=== PATIENT | male | born 1985 | race African-American/Black ===

== ENCOUNTER 2022-10-28 20:02 | Observation (INO) | payer MEDICAID ==
[~2022-10-28] VITALS: Ht 188 cm; Wt 127.0 kg
[2022-10-28 20:07] VITALS: BP 158/90
--- NOTE | 2022-10-28 23:32 | NUR ---
Patient taken to bed 11.
--- NOTE | 2022-10-28 23:37 | NUR ---
Dr. Castro examining patient.
[2022-10-28] MEDS ORDERED: DEXAMETHASONE 10 MG/ML VIAL IVP ONE (23:45)
[2022-10-28] MEDS ORDERED: NACL 0.9% 1,000 ML IV ONE (23:45)
[2022-10-28] MEDS ORDERED: KETOROLAC 30 MG/ML VIAL IVP ONE (23:45)
--- NOTE | 2022-10-28 23:46 | NUR ---
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
[2022-10-28] MEDS ORDERED: FAMOTIDINE 20 MG/2 ML VIAL IVP ONE (23:50)
--- NOTE | 2022-10-28 23:56 | NUR ---
PT TAKEN TO CT
--- NOTE | 2022-10-29 00:12 | NUR ---
PT RETURN FROM CT
[2022-10-29 00:43] LABS: BASOPHILS % (AUTO) 0.4 % (0.0-2.0); EOSINOPHILS % (AUTO) 0.1 % (0.0-4.0); HEMATOCRIT 39.2 % (36-52); HEMOGLOBIN 12.9 g/dL (12.0-18.0); LYMPHOCYTES # (AUTO) 1.8 K/uL (2.0-11.5); LYMPHOCYTES % (AUTO) 16.4 % (20.5-51.1); MEAN CORPUSCULAR HEMOGLOBIN 30 pg (27-31); MEAN CORPUSCULAR HGB CONC 33 g/dL (33-37); MEAN CORPUSCULAR VOLUME 90.9 fL (80-94); MONOCYTES # (AUTO) 1.1 K/uL (0.8-1.0); MONOCYTES % (AUTO) 9.8 % (1.7-9.3); NEUTROPHILS # (AUTO) 8.1 K/uL (1.8-7.7); NEUTROPHILS % (AUTO) 73.3 % (42.2-75.2); PLATELET COUNT (AUTO) 269 K/uL (140-450); RED BLOOD CELL COUNT(AUTO) 4.31 MIL/uL (4.20-6.10); RED CELL DISTRIBUTION WIDTH 15.5 % (11.6-13.7); WHITE BLOOD COUNT (AUTO) 11.1 K/uL (4.8-10.8)
--- NOTE | 2022-10-29 01:01 | NUR ---
STREP SWABS COLLECTED AND WALKED TO LAB.
[2022-10-29 01:16] LABS: ANION GAP 11.8 (8-16); CARBON DIOXIDE 28.5 mmol/L (21-32); CREATININE 1.2 mg/dL (0.6-1.3); POTASSIUM 4.3 mmol/L (3.5-5.1)
[2022-10-29] MEDS ORDERED: metroNIDAZOLE 500 MG/NS PREMIX 100 ML IV ONE ×2 (01:45→01:49)
[2022-10-29] MEDS ORDERED: LEVOFLOXACIN 750 MG/D5W PREMIX 150 ML IV ONE (01:45)
--- NOTE | 2022-10-29 01:45 | NUR ---
PATIENT RESTING IN BED WITH EYES CLOSED. DOESNT APPEAR TO BE IN DISTRESS. PATIENT STATED HE IS FEELING ALOT BETTER AFTER THE MEDICATION. BED LOW AND LOCKED. CALL LIGHT IN REACH. ALL NEEDS MET.
--- NOTE | 2022-10-29 02:02 | NUR ---
CHARANJIT COLLECTED AND WALKED TO LAB
--- NOTE | 2022-10-29 02:55 | NUR ---
skin check done. skin intact.
--- NOTE | 2022-10-29 02:56 | NUR ---
medication reconciliation complete
--- NOTE | 2022-10-29 03:43 | NUR ---
PATIENT RESTING IN BED WITH EYES CLOSED. DOESNT APPEAR TO BE IN DISTRESS. BED LOW AND LOCKED. RADHA SIDE RAILS FOR SAFETY. ALL NEEDS MET. CALL LIGHT IN REACH.
[2022-10-29] MEDS ORDERED: MAG SULF 2000 MG/WATER PREMIX 50 ML IV PRN (06:35)
[2022-10-29] MEDS ORDERED: DOCUSATE SODIUM 100 MG GELCAP PO PRN (06:35)
[2022-10-29] MEDS ORDERED: POTASSIUM CHLORIDE 10 MEQ TABER PO PRN (06:35)
[2022-10-29] MEDS ORDERED: ZOLPIDEM 10 MG TAB PO PRN (06:35)
[2022-10-29] MEDS ORDERED: ACETAMINOPHEN 325 MG TAB PO PRN (06:35)
[2022-10-29] MEDS ORDERED: MORPHINE SULFATE 2 MG/ML SYR IVP PRN (06:35)
[2022-10-29] MEDS ORDERED: LORazepam 2 MG/ML VIAL IVP PRN (06:35)
[2022-10-29] MEDS ORDERED: ONDANSETRON 4 MG/2 ML VIAL IVP PRN (06:35)
--- NOTE | 2022-10-29 07:20 | NUR ---
REPORT GIVEN TO YUAN SHAIKH. TRANSFER OF CARE.
--- NOTE | 2022-10-29 08:00 | NUR ---
RECEIVED PT IN [facility] AOX4. DENIES PAIN OR DISCOMFORT. NSR ON MONITOR. BREATHING UNLAORED. NAD. SAFETY MAINTAINED.
[2022-10-29 10:00] VITALS: BP 117/65
--- NOTE | 2022-10-29 10:53 | NUR ---
Patient does not wish to proceed with medical care recommended by DR NGUYEN. Patient given information related to possible complications, up to and including , which could occur as a result of leaving hospital at this time. Patient verbalizes understanding of risks involved leaving against medical advice. Patient has signed AMA form.
[2022-10-29] MEDS ORDERED: methylPREDNISolone SS 40 MG in WATER STERILE 1 ML IV SCH (13:00)
[2022-10-29] MEDS ORDERED: metroNIDAZOLE 500 MG/NS PREMIX 100 ML IV SCH (13:00)
[2022-10-29] MEDS ORDERED: methylPREDNISolone SS 40 MG/ML VIAL IVP SCH (13:00)
[2022-10-30] MEDS ORDERED: LEVOFLOXACIN 500 MG/D5W PREMIX 100 ML IV SCH (02:30)
== END 2022-10-29 10:49 | disposition left against medical advice (07) ==
LOC: MED 20:02 → MTU 10-29 06:34
PROVIDERS: ADMIT Family Medicine; ATTEND Family Medicine
DX: J02.9 Acute pharyngitis, unspecified (principal); Z20.822 Contact with and (suspected) exposure to COVID-19; T78.3XXA Angioneurotic edema, initial encounter; F32.A Depression, unspecified; F17.210 Nicotine dependence, cigarettes, uncomplicated; Z88.0 Allergy status to penicillin; Z53.29 Procedure and treatment not carried out because of patient's decision for other reasons; Z79.899 Other long term (current) drug therapy
CPT/HCPCS: 36415; 70491; 80048; 83605; 85025; 87040; 87081; 87426; 96361; 96365; 96367; 96375; 99291; G0378; J1100; J1885; J1956; J3490; Q9967

== ENCOUNTER 2024-08-01 21:45 | Emergency (ER) | payer MEDICAID ==
[~2024-08-01] VITALS: Ht 188 cm; Wt 140.6 kg
[2024-08-01 21:52] VITALS: BP 119/80; PULSE 95; RESP 18; TEMP 97.1; O2SAT 95
[2024-08-01 21:55] VITALS: O2SAT 95
[2024-08-01 23:41] LABS: BASOPHILS % (AUTO) 0.3 % (0.0-2.0); EOSINOPHILS % (AUTO) 0.3 % (0.0-4.0); HEMATOCRIT 39.3 % (36-52); HEMOGLOBIN 13.2 g/dL (12.0-18.0); LYMPHOCYTES % (AUTO) 27.7 % (20.5-51.1); MEAN CORPUSCULAR HEMOGLOBIN 31 pg (27-31); MEAN CORPUSCULAR HGB CONC 34 g/dL (33-37); MEAN CORPUSCULAR VOLUME 92.1 fL (80-94); MONOCYTES # (AUTO) 0.9 K/uL (0.8-1.0); MONOCYTES % (AUTO) 8.7 % (1.7-9.3); NEUTROPHILS # (AUTO) 6.8 K/uL (1.8-7.7); PLATELET COUNT (AUTO) 208 K/uL (140-450); RED BLOOD CELL COUNT(AUTO) 4.26 MIL/uL (4.20-6.10); RED CELL DISTRIBUTION WIDTH 14.8 % (11.6-13.7); WHITE BLOOD COUNT (AUTO) 10.7 K/uL (4.8-10.8)
[2024-08-01 23:58] VITALS: O2SAT 95
[2024-08-02 00:01] LABS: ANION GAP 13.9 (8-16); CALCIUM 9.3 mg/dL (8.5-10.1); CARBON DIOXIDE 25.7 mmol/L (21-32); CREATININE 1.8 mg/dL (0.6-1.3); POTASSIUM 3.6 mmol/L (3.5-5.1)
[2024-08-02 00:24] LABS: ALANINE AMINOTRANSFERASE 49 U/L (12-78); ALBUMIN 3.9 g/dL (3.4-5.0); ALKALINE PHOSPHATASE 63 U/L (50-136); ASPARTATE AMINOTRANSFERASE 49 U/L (15-37); BILIRUBIN,DIRECT 0.1 mg/dL (0.0-0.3); TOTAL BILIRUBIN 0.3 mg/dL (0.0-1.0); TOTAL PROTEIN, SERUM 8.9 g/dL (6.4-8.2)
[2024-08-02 01:35] VITALS: O2SAT 95
[2024-08-02 04:59] VITALS: O2SAT 95
[2024-08-02] MEDS ORDERED: APIX5TAB PO (05:32)
[2024-08-02 05:59] VITALS: BP 121/81; PULSE 89; RESP 18; TEMP 97.1; O2SAT 95
== END 2024-08-02 05:49 | disposition home or self-care (01) ==
LOC: MED 21:45
DX: M79.604 Pain in right leg (principal); Z98.890 Other specified postprocedural states; Z88.0 Allergy status to penicillin
CPT/HCPCS: 36415; 71045; 80048; 80076; 83880; 84484; 85025; 85379; 93005; 93970; 99285; Q0092